=== PATIENT | female | born 1990 | race Caucasian/White ===

== ENCOUNTER 2018-06-24 13:34 | Emergency (ER) | payer OTHER ==
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
== END 2018-06-24 14:30 | disposition home or self-care (01) ==
LOC: UCEAST 13:34
DX: M25.512 Pain in left shoulder (principal); V43.52XA Car driver injured in collision with other type car in traffic accident, initial encounter
CPT/HCPCS: 99201; G0463